=== PATIENT | female | born 1995 | race Caucasian/White ===

== ENCOUNTER → 2021-07-14 | Outpatient (CLI) | payer OTHER ==
--- NOTE | 2021-07-14 13:56 | Diagnostic Imaging Report ---
Indication: Palpable lumps bilateral breasts. No prior mammograms are available for comparison. 2-D and 3-D bilateral diagnostic mammography was performed with CAD. BB markers were placed at the areas of palpable abnormality in both breasts. Both breasts are heterogeneously dense, limiting the sensitivity of mammography. There is a biopsy marker clip in the upper outer right breast. No discrete mass or malignant-appearing microcalcifications are identified. Axillae are unremarkable. IMPRESSION: BI-RADS 0 No mammographic features suspicious for malignancy are identified. Even so, directed sonographic interrogation of the areas of palpable abnormality in both breast is recommended and will be performed today. ACR BI-RADS Category 0: Incomplete. (Needs additional imaging evaluation). Result letter will be mailed to the patient. Note: At least 10% of breast cancer is not imaged by mammography. Dictated by: Dictated on workstation # [id number]
--- NOTE | 2021-07-14 14:41 | Diagnostic Imaging Report ---
Indication: Palpable lumps bilateral breast. Correlation is made with diagnostic mammogram earlier same day. Sonographic interrogation of areas of palpable abnormality in both breasts was performed. This corresponds to the 11-12:00 location of the left breast and 10:00 location of the right breast. No sonographic abnormality is seen. No solid or cystic mass is detected. IMPRESSION: BI-RADS Category 1 No sonographic abnormality is identified. Continued close clinical and self breast exams recommended to confirm stability of the areas of palpable abnormality. ACR BI-RADS Category 1: Negative. Dictated by: Dictated on workstation # [id number]
== END ==
LOC: RAD 12:54
PROVIDERS: ATTEND Nurse Practitioner Family
DX: N63.10 Unspecified lump in the right breast, unspecified quadrant (principal); N63.20 Unspecified lump in the left breast, unspecified quadrant
CPT/HCPCS: 76642; 77066; G0279; 77062